=== PATIENT | male | born 1985 | race Caucasian/White ===

== ENCOUNTER 2019-10-03 17:42 | Emergency (ER) | payer OTHER ==
[2019-10-03 18:08] VITALS: BP 125/82
[2019-10-03] MEDS ORDERED: Lidocaine 1% MPF ** 5 ML VIAL INJ ONE (18:10)
[2019-10-03] MEDS ORDERED: DOXYcycline CAP(*) 100 MG PO ONE (18:49)
--- NOTE | 2019-10-03 18:53 | UC ---
Laceration HPI - HPI Summary HPI Summary: 34-year-old male comes in with a chief complaint of a laceration to his left index finger. Just prior to arrival while fixing a lawnmower tire he accidentally cut his left index finger. He did clean it at home. Reports he's had a tetanus shot within the last 5 years. No complaint of any loss of sensation or decreased range of motion or strength. Bleeding stopped with direct pressure. - History Of Current Complaint Chief Complaint: [employer] Stated Complaint: LEFT INDEX FINGER LACERATION Time Seen by Provider: 10/03/19 18:10 Pain Intensity: 0 - Allergies/Home Medications Allergies/Adverse Reactions: Allergies Allergy/AdvReac Type Severity Reaction Status Date / Time Cephalosporins Allergy Unknown Verified 10/03/19 18:05 Reaction Details Home Medications: Home Medications DOXYcycline CAP(*) [DOXYcycline 100MG CAP(*)] 100 mg PO BID #8 cap 10/03/19 [Rx] PMH/Surg Hx/FS Hx/Imm Hx Previously Healthy: Yes - Surgical History Surgical History: None - Family History Known Family History: Positive: Non-Contributory - Social History Alcohol Use: Occasionally Substance Use Type: None Smoking Status (MU): Never Smoked Tobacco Review of Systems All Other Systems Reviewed And Are Negative: Yes Constitutional: Positive: Negative Skin: Positive: Other - see hpi Eyes: Positive: Negative ENT: Positive: Negative Respiratory: Positive: Negative Motor: Positive: Negative Neurovascular: Positive: Negative Musculoskeletal: Positive: Negative Neurological/Mental Status: Positive: Negative Psychological: Positive: Negative Is Patient Immunocompromised?: No Physical Exam Triage Information Reviewed: Yes Appearance: Well-Appearing, No Pain Distress, Well-Nourished Vital Signs: Initial Vital Signs Temp 98 F 10/03/19 18:05 Pulse 73 10/03/19 18:05 Resp 16 10/03/19 18:05 BP 125/82 10/03/19 18:05 Pulse Ox 98 10/03/19 18:05 Vital Signs Reviewed: Yes Eye Exam: Normal Eyes: Positive: Conjunctiva Clear Neck: Positive: Supple Respiratory: Positive: No respiratory distress Musculoskeletal: Positive: Strength Intact, ROM Intact Neurological: Positive: Alert Psychological: Positive: Age Appropriate Behavior Skin: Positive: Other - Left index finger as a 1.8 centimeter subcutaneous laceration on the palmar surface. Fingers full range of motion, full-strength, normal sensation, normal capillary refill. Laceration Repair - Laceration Repair 1 Procedure Summary: Palmar surface of the left index finger. The wound is irrigated by nursing and I also cleaned it with Hibiclens. No foreign body seen. I did not appreciate any tendon involvement. Description: Irregular Laceration Size After Repair: Length (cm) - 1.8 cm Modified For Repair: No Type Injection: Local Anesthesia Used: 1.0% Lido Irrigation With Pressure Irrigation Device: Yes Closure Material: Sutures - #5, 5-0 Closure Method: Single Layer Suture Of: Skin Suture Type: Other - Ethilon Laceration Course/Dx - Course/Dx Course Of Treatment: The laceration did appear clean. However because it occurred while fixing a tire, I'm treating him prophylactically with doxycycline 100 mg by mouth twice a day for 5 days. Finger full range of motion full-strength normal sensation and normal cap refill I did not appreciate any tendon involvement. Sutures out in 8-10 days. Patient is to get reevaluated if not improving or worse either here or with the orthopedic hand specialist. - Diagnosis Provider Diagnosis: Laceration of left index finger Discharge ED - Sign-Out/Discharge Documenting (check all that apply): Patient Departure All imaging exams completed and their final reports reviewed: No Studies - Discharge Plan Condition: Stable Disposition: HOME Prescriptions: DOXYcycline CAP(*) [DOXYcycline 100MG CAP(*)] 100 mg PO BID #8 cap Patient Education Materials: Finger Laceration (ED) Referrals: Lee Carlos DO [Primary Care Provider] - Shayla Pierson MD [Medical Doctor] - Greyson Grande MD [Medical Doctor] - Additional Instructions: FOLLOW UP WITH THE ORTHOPEDIC HAND SPECIALIST IF NOT COMPLETELY IMPROVED. GET REEVALUATED IF NOT IMPROVING OR WORSE; SIGNS OF INFECTION, WEAKNESS, NUMBNESS, LOSS OF RANGE OF MOTION OR ANY QUESTIONS OR CONCERNS. - Billing Disposition and Condition Condition: STABLE Disposition: Home
== END 2019-10-03 19:12 | disposition home or self-care (01) ==
LOC: UCCORT 17:42
DX: S61.211A Laceration without foreign body of left index finger without damage to nail, initial encounter (principal); W26.8XXA Contact with other sharp object(s), not elsewhere classified, initial encounter; Y93.89 Activity, other specified; Y92.9 Unspecified place or not applicable; Z88.1 Allergy status to other antibiotic agents
CPT/HCPCS: 12001; 99212; A9270-GY; G0463